=== PATIENT | female | born 1955 ===

== ENCOUNTER 2017-01-17 06:53 | Day surgery (SDC) | payer MEDICAID ==
[2017-01-02 09:26] VITALS: BMI 23.3
[2017-01-17] MEDS ORDERED: Bacitracin Ointment 30 GM TUBE ONE (07:51)
[2017-01-17] MEDS ORDERED: Lidocaine 1% Inj (20ml) ONE (07:51)
[2017-01-17] MEDS ORDERED: Bupivacaine HCl 0.5% PF (10 ml) Inj ONE (07:51)
[2017-01-17 08:01] VITALS: RESP 18; O2SAT 100
[2017-01-17] MEDS ORDERED: Lactated Ringer's 1,000 ML IV ONE ×2 (08:20→09:30)
[2017-01-17] MEDS ORDERED: Propofol 10 mg/ml Inj (20 ML) ONE ×2 (08:21→09:00)
[2017-01-17] MEDS ORDERED: Midazolam 2 MG/2 ML VIAL ONE ×2 (08:21→08:27)
[2017-01-17] MEDS ORDERED: HYDROmorphone 0.5 mg/0.5 ml ISec IVP PRN (08:53)
--- NOTE | 2017-01-17 09:54 | PCM.SURG1 ---
Surgeon's Initial Post Op Note - Surgeon's Notes Surgeon: Dr. Vizcaino DPM Planting Machine Operator: Dr. Rodriguez DPM PGY-1, Dr. Brooks DPM PGY-2 Type of Anesthesia: IV Sedation, Local Anesthesia Administered By: Dr. Matos Pre-Operative Diagnosis: left foot 3rd, 4th, 5th digit hammertoe deformity, left 4th plantarflexed metatarsal, left 4th digit contracted tendon Operative Findings: see dication. I: 20 mL 1:1 mixture of 1% lidocaine plain, 0.5% marcaine plain. M:4-0 vicryl, 4-0 nylon Post-Operative Diagnosis: same Operation Performed: left 3rd, 4th, 5th digit hammertoe correction, left 4th metatarsal head resection, left 4th extensor tendon release Specimen/Specimens Removed: bone Estimated Blood Loss: EBL {In ML}: 0 Blood Products Given: N/A Drains Used: No Drains Post-Op Condition: Good Date of Surgery/Procedure: 01/17/17 Time of Surgery/Procedure: 09:54
[2017-01-17] MEDS ORDERED: Oxycodone/Acetaminophen 5/325 mg Tab PO PRN ×2 (09:56)
[2017-01-17 11:10] VITALS: BP 127/85; PULSE 55; TEMP 97.4
--- NOTE | 2017-01-17 13:33 | RAD ---
PROCEDURE: Left Foot Radiographs. HISTORY: s/p left foot surgery COMPARISON: 12/04/2016 FINDINGS: BONES: Normal. No fractureThe post bunionectomy changes of the 1st metatarsal head are re- suggested. Interval surgical changes osteotomies/partial resection of the distal 4th metatarsal, and distal 4th and 5th proximal phalanges is noted. There is now valgus orientation to the 4th and 5th interphalangeal joints in contrast to the prior orientation of sissoring medially overlying bandage is present no periosteal reaction is seen. The narrowed appearance to the 5th metatarsal head is similar in appearance medial left 5th meta tarsal head cortex here is similar appearance subcortical cyst or changes are probable. JOINTS: As above SOFT TISSUES: Soft tissue swelling consistent with postop changes OTHER FINDINGS: None. IMPRESSION: Postop changes as above
--- NOTE | 2017-01-21 08:21 | OP ---
PROCEDURE DATE: 01/17/2017 SURGEON: Tam Vizcaino DPM. GREEN BUILDING ENGINEER: Linda Hernandez DPM, PGY-[address] Todd DPM, PGY-2. ANESTHESIOLOGIST: Jamar Matos DO. ANESTHESIA TYPE: IV sedation with local. PREOPERATIVE DIAGNOSES: 1. Left fourth plantarflexed metatarsal. 2. Left fourth digit hammertoe deformity. 3. Left fourth digit contracted tendon. 4. Left third digit hammertoe deformity. 5. Left fifth digit hammertoe deformity. POSTOPERATIVE DIAGNOSES: 1. Left fourth plantarflexed metatarsal. 2. Left fourth digit hammertoe deformity. 3. Left fourth digit contracted tendon. 4. Left third digit hammertoe deformity. 5. Left fifth digit hammertoe deformity. PROCEDURE PERFORMED: 1. Left fourth metatarsal head resection. 2. The left fourth digit proximal interphalangeal joint arthroplasty. 3. Left fourth extensor tendon release. 4. Left third digit arthroplasty. 5. Left fifth digit posterior interphalangeal joint arthroplasty. INDICATIONS: The patient is a 61-year-old female with the above diagnosis. The patient has exhauste d all conservative treatment and now requests surgical intervention at this time. The patient signed the consent after careful explanation of risks, benefits, complications and alternatives for surgica l procedure. N.p.o. status was confirmed prior to taking the patient to the OR. No guarantees were given or implied. PROCEDURE IN DETAIL: The patient was brought into the operating room and placed on the operating room table in a supine position. A well-padded pneumatic ankle tourniquet was applied to the patient's l eft ankle in the supramalleolar position. A timeout was performed for correct identification of ashlyn ent and procedure. The patient received a total of 20 mL of a mixture of 0.5% Marcaine plain and 1% lidocaine plain in a local block fashion to the left foot. Once local anesthesia was achieved, the r ight foot was then prepped and draped in normal sterile manner. The patient's left foot was then exs anguinated and the pneumatic ankle tourniquet was inflated to 250 mmHg and the procedure began. Procedure #1: Left fourth metatarsal head resection. Attention was directed to the dorsal aspect of the fourth metatarsophalangeal joint where an approximately 4 cm incision was made. The incision was carried down through subcutaneous tissue making sure to identify and retract all vital neurovascular structures. All bleeders were ligated and cauterized as necessary. At this time, dissection was co ntinued down to the level of the fourth metatarsal head which was visualized using a McClamary elevat or and the fourth metatarsophalangeal joint was released. Using a sagittal saw, the fourth metatarsa l head was resected and passed from the operative field and sent for pathology. Correction of the de formity was assessed and noted to be excellent. The rough edges were smoothed and the site was irrig ated with copious amounts of normal sterile saline. Procedure 2: Left fourth digit the PIPJ arthroplasty. Attention was then directed to the dorsal asp ect of the fourth digit and the incision was carried dorsally to the PIPJ. Incision was deepened thr ough the subcutaneous tissue with care being taken to identify and retract all vital neurovascular st ructures. All bleeders were cauterized and ligated as necessary. At this time, a transverse tenotom y and capsulotomy were performed to the proximal interphalangeal joint and the head of the proximal p halanx capsular and ligamentous attachments. Next, utilizing a sagittal saw, the head of the p roximal phalanx was resected and passed from the operative site and sent for pathology. Procedure #3: Left fourth extensor tendon release. Attention was then directed to the fourth extenso r tendon overlying the digit. Using a #15 blade, the extensor tendon was released. The site was the n irrigated with copious amounts of normal sterile saline. The subcutaneous tissue was reapproximate d with 4-0 Vicryl and the skin was reapproximated with 4-0 nylon. Procedure #4: Left third digit arthroplasty. Next, a 2 cm incision was made on the dorsal aspect of the proximal interphalangeal joint of the third digit lateral to the extensor tendon. Sharp dissecti on was carried down through the deep tissue being careful to identify and retract all vital neurovasc ular structures. All bleeders were ligated and cauterized. At this time, a capsulotomy was performe d at the proximal interphalangeal joint and the lateral aspect of the head of the proximal phalanx wa s freed of its capsular and ligamentous attachments. Next, utilizing a sagittal saw, the condyle of the proximal phalanx was resected and passed from the operative site and sent for pathology. Correcti on of the deformity was assessed at this time and noted to be excellent. The surgical site was then irrigated with copious amounts of normal sterile saline and the skin was reapproximated and sutured w ith 4-0 nylon. Procedure 5: Left fifth digit PIPJ arthroplasty. Next, 2 cm incision was made on the dorsal aspect of the proximal interphalangeal joint of the fifth digit in a semielliptical type orientation. Sharp d issection was carried down through the tissue being careful to identify and retract all vital neurova scular structures. All bleeders were ligated and cauterized as necessary. At this time, a transvers e tenotomy and capsulotomy were performed at the proximal interphalangeal joint and the head of the p roximal phalanx was freed of its capsular and ligamentous attachments. Next, utilizing a sagittal sa w, the head of the proximal phalanx was resected and passed from the operative site and sent for path ology. Correction of the deformity was assessed at this time and noted to be excellent. The site was then irrigated with copious amounts of normal sterile saline. The tendon was reapproximated and sut ured with #4-0 Vicryl. The skin was then reapproximated and sutured with #4-0 nylon. The sites were dressed with Betadine-soaked Adaptic, Betadine gauze, 4 x 4s, Kerlix and Coban. POSTOPERATIVE CONDITION: The patient tolerated the procedure and anesthesia well and was escorted to the recovery room with vital signs stable and neurovascular status intact to the left lower extremit y. The patient will follow up with Dr. Vizcaino in office. LINDA HERNANDEZ DPM Tam Vizcaino DPM cc: [id number] TT: 01/18/2017 18:00:45
== END 2017-01-17 11:56 | disposition home or self-care (01) ==
LOC: C.SDS 06:53
PROVIDERS: ATTEND Podiatrist
DX: M20.42 Other hammer toe(s) (acquired), left foot (principal); M21.6X2 Other acquired deformities of left foot; M24.575 Contracture, left foot
CPT/HCPCS: 28285; 73620; 88304; J2250; J2704; J3010; J7120